=== PATIENT | female | born 1935 | race Caucasian/White ===

== ENCOUNTER 2017-08-26 14:07 | Emergency (ER) | payer BC, MEDICARE ==
[2017-08-26] MEDS ORDERED: Diph,Pert(Acell),Tet Vac 0.5 ML SYR IM ONE (14:12)
[2017-08-26] MEDS ORDERED: CLINDAMYCIN 150 MG CAP PO ONE (14:12)
--- NOTE | 2017-08-26 14:34 | Emergency Department Record ---
History of Present Illness - General Chief Complaint: Laceration(s) Stated Complaint: LACERATION ON RIGHT WRIST Time Seen by Provider: 08/26/17 14:12 Source: Patient, Family Mode of Arrival: Ambulatory Limitations: No limitations - History of Present Illness Initial Commments: 81 female presents after falling on a wood pile. She lacerated her right wrist. She denies any loss of ROM or feeling. She is unsure of when her last tetanus shot was performed. She is right handed. She does take Xarelto but bleeding has been minimal. -: Minutes(s) Extremity Location: Right: Wrist Place: Home Context: Accidental Associated Symptoms: None Treatments Prior to Arrival: Bandage - Lauren Coma Scale Eye Response: (4) Open spontaneously Motor Response: (6) Obeys commands Verbal Response: (5) Oriented [place] Total: 15 - Related Data Previous Rx's Medication Instructions Recorded Clindamycin HCl 300 mg PO TID #30 capsule 08/26/17 Allergies Allergy/AdvReac Type Severity Reaction Status Date / Time diphenhydramine Allergy HYPERSENSIT Verified 08/26/17 14:14 [From Benadryl] IVITY morphine Allergy BEHAVIORAL Verified 08/26/17 14:14 CHANGES Review of Systems Constitutional: Denies: Chills, Fever, Malaise, Weakness Eyes: Denies: Eye discharge ENT: Denies: Congestion, Throat pain Respiratory: Denies: Cough Cardiovascular: Denies: Arrhythmia Endocrine: Denies: Fatigue Gastrointestinal: Denies: Nausea, Vomiting Musculoskeletal: Denies: Arthralgia, Back pain, Myalgia Skin: Reports: Other (laceration). Denies: Bruising, Change in color, Rash Neurological: Denies: Numbness, Tingling, Tremors, Vertigo, Weakness Psychiatric: Denies: Anxiety Hematological/Lymphatic: Denies: Blood Clots, Easy bleeding, Easy bruising, Swollen glands Past Medical History - SOCIAL HISTORY Smoking Status: Former smoker - RESPIRATORY Hx Respiratory Disorders: No - CARDIOVASCULAR Hx Cardio Disorders: Yes Hx Hypertension: Yes Hx Irregular Heartbeat: Yes (Afib) - NEURO Hx Neuro Disorders: Yes Hx Headaches: Yes - GI Hx GI Disorders: Yes Hx Diverticulitis: Yes Hx of Polyps: Yes - Hx Genitourinary Disorders: Yes Hx Bladder Problem: Yes Hx Kidney Stones: Yes - ENDOCRINE Hx Endocrine Disorders: No - MUSCULOSKELETAL Hx Musculoskeletal Disorders: No - PSYCH Hx Psych Problems: No - HEMATOLOGY/ONCOLOGY Hx Hematology/Oncology Disorders: No Family Medical History Hx Heart Disease: Brother/Sister Physical Exam - General General Appearance: Alert, Oriented x3, Cooperative, No acute distress - Head Head exam: Atraumatic, Normocephalic, Normal inspection - Eye Eye exam: Normal appearance. negative: Conjunctival injection, Periorbital swelling - ENT ENT exam: Normal exam Ear exam: Normal external inspection Nasal Exam: Normal inspection Mouth exam: Normal external inspection - Neck Neck exam: Normal inspection - Cardiovascular Cardiovascular Exam: Regular rate, Normal rhythm, Normal heart sounds Peripheral Pulses: 2+: Radial (R) - Rectal Rectal exam: Deferred - exam: Deferred - Extremities Extremities exam: Full ROM, Normal capillary refill, Pedal edema, Tenderness. negative: Normal inspection Image of Hand: 1 - 2.5cm laceration, no visible tendon injury, 2 large 3mm pieces of wound noted and removed easily, no other gross contamination in a bloodless field - Neurological Neurological exam: Alert, Motor sensory deficit, Oriented X3 - Psychiatric Psychiatric exam: Normal affect, Normal mood - Skin Skin exam: negative: Intact (wrist laceration) Course - Reevaluation(s) Reevaluation #1: Betadine prep 500 Ml NS irrigation Inspection multiple times No residual FB XR ordered. 08/26/17 14:35 The XR was read as negative PROCEDURE 2.5 cm wrist laceration The wound was re-prepped with Betadine The wound again irrigated with 500ml NS The wound again explored in a bloodless field No residual FB Prolene 4-0 suture used with good wound approximation #7 We discussed at length signs of infection and return immediately if any redness , drainage, pus or any early signs of concern 08/26/17 15:27 Disposition Disposition: Discharge Clinical Impression: Wrist laceration Qualifiers: Encounter type: initial encounter Laterality: right Qualified Code(s): S61.511A - Laceration without foreign body of right wrist, initial encounter Disposition: Home, Self-Care Condition: (1) Good Instructions: Laceration (ED) Additional Instructions: Immediately return if red, warm, pus or any new concerns Take the antibiotics as directed Return in 12 days for suture removal Prescriptions: Clindamycin HCl 300 mg PO TID #30 capsule Forms: Patient Portal Access Time of Disposition: 15:28 Quality - Quality Measures Quality Measures: N/A - Blood Pressure Screening Does Patient Have Any of the Following: No Blood Pressure Classification: Pre-Hypertensive BP Reading Systolic Measurement: 148 Diastolic Measurement: 88 Screening for High Blood Pressure: < Pre-Hypertensive BP, F/U Documented > [ G8950] Pre-Hypertensive Follow-up Interventions: Referral to alternative/primary care provider.
--- NOTE | 2017-08-28 08:10 | RADIOLOGY REPORT ---
EXAM: RIGHT WRIST HISTORY: INJURY. TECHNIQUE: Four views of the right wrist were performed. FINDINGS: No evidence of fracture or dislocation. No lytic or blastic lesion. IMPRESSION: NEGATIVE RIGHT WRIST EXAMINATION. JOB NUMBER: [id number] MTDD
== END 2017-08-26 15:38 | disposition home or self-care (01) ==
LOC: ER 14:07
DX: S61.521A Laceration with foreign body of right wrist, initial encounter (principal); W18.39XA Other fall on same level, initial encounter; Y92.007 Garden or yard of unspecified non-institutional (private) residence as the place of occurrence of the external cause
CPT/HCPCS: 12031; 90715; 96372; 99283; 99284

== ENCOUNTER 2017-09-04 15:16 | Emergency (ER) | payer MEDICARE ==
--- NOTE | 2017-09-04 16:15 | Emergency Department Record ---
History of Present Illness - General Chief complaint: Lower Extremity Pain Stated complaint: RT LEG PAIN BEHIND KNEE, Time Seen by Provider: 09/04/17 16:07 Source: Patient Mode of Arrival: Wheelchair Limitations: No limitations - History of Present Illness Initial comments: The patient is here due to her lower legs hurting. She states she fell a week ago and was banged up pretty good and was seen in the ER. Since her L leg has been painful. Now today she twisted and the back of her R knee started hurting. She denies any new fall or injury. She also denies any numbness, tingling or weakness. The patient does have Afib and is on Xarelto. MD Complaint: Extremity pain Onset/Timin -: Week(s) Location: Right, Lower Leg History of Same: No Radiation: Distal Severity scale (1-10): 7 Quality: Aching Consistency: Constant Improves with: Elevation, Immobilization Worsens with: Walking, Weight bearing Associated Symptoms: Denies other symptoms - Related Data Home Medications Medication Instructions Recorded Confirmed Last Taken Amlodipine Besylate [Norvasc] 5 mg PO DAILY 09/04/17 09/04/17 09/04/17 Metoprolol Tartrate [Metoprolol 25 mg PO DAILY 09/04/17 09/04/17 09/04/17 Tartrate] Previous Rx's Medication Instructions Recorded Clindamycin HCl 300 mg PO TID #30 capsule 08/26/17 Allergies Allergy/AdvReac Type Severity Reaction Status Date / Time diphenhydramine Allergy HYPERSENSIT Verified 09/04/17 15:41 [From Benadryl] IVITY morphine Allergy BEHAVIORAL Verified 09/04/17 15:41 CHANGES Travel Screening - Travel/Exposure Within Last 30 Days Have you traveled within the last 30 days?: No Review of Systems Constitutional: Denies: Chills, Fever Eyes: Denies: Eye discharge ENT: Denies: Congestion Respiratory: Denies: Cough, Dyspnea Past Medical History - SOCIAL HISTORY Smoking Status: Former smoker Alcohol Use: None Drug Use: None - RESPIRATORY Hx Respiratory Disorders: No - CARDIOVASCULAR Hx Cardio Disorders: Yes Hx Hypertension: Yes Hx Irregular Heartbeat: Yes (Afib) - NEURO Hx Neuro Disorders: Yes Hx Headaches: Yes - GI Hx GI Disorders: Yes Hx Diverticulitis: Yes Hx of Polyps: Yes - Hx Genitourinary Disorders: Yes Hx Bladder Problem: Yes Hx Kidney Stones: Yes - ENDOCRINE Hx Endocrine Disorders: No - MUSCULOSKELETAL Hx Musculoskeletal Disorders: No - PSYCH Hx Psych Problems: No - HEMATOLOGY/ONCOLOGY Hx Hematology/Oncology Disorders: No Family Medical History Any Significant Family History?: Yes Hx Heart Disease: Brother/Sister Physical Exam - General General Appearance: Alert, Oriented x3, Cooperative, No acute distress - Head Head exam: Atraumatic, Normocephalic, Normal inspection - Eye Eye exam: Normal appearance, PERRL - Neck Neck exam: Normal inspection, Full ROM. negative: Tenderness - Respiratory Respiratory exam: Normal lung sounds bilaterally. negative: Respiratory distress - Cardiovascular Cardiovascular Exam: Irregular rhythm, Systolic murmur (2/6 (chronic per patient )). negative: Regular rate, Normal rhythm - GI/Abdominal GI/Abdominal exam: Soft, Normal bowel sounds. negative: Tenderness - Extremities Extremities exam: Normal capillary refill, Pedal edema (Trace L > R. ), Tenderness (There is posterior R knee tenderness and L lateral lower leg tenderness.), Other (Lower leg DP pulses 2+ and equal bilaterally.). negative: Normal inspection (There is slight bruising to the anterior R knee.), Calf tenderness, Full ROM, Joint swelling - Neurological Neurological exam: Alert. negative: Motor sensory deficit Course Vital Signs 09/04/17 15:37 Temperature 97.9 F Pulse Rate 62 Respiratory 20 Rate Blood Pressure 138/82 Pulse Ox 97 - Reevaluation(s) Reevaluation #1: The patient is doing OK at this time. She is still having pain to the R leg and knee. I did explain the xray and lab results. Her uric acid is elevated but with her kidney function it is not clear if she is having a gout problem. She is to take Tylenol for pain and use her walker at home. She is to see her PCP this week to go over her lab results and to have her renal insufficiency evaluated further. 09/04/17 17:56 Medical Decision Making - Data Complexity MDM Data: Labs Ordered and/or Reviewed, X-Ray Ordered and/or Reviewed - Lab Data Result diagrams: 09/04/17 16:25 09/04/17 16:25 - Radiology Data Radiology results: Report reviewed (L lower leg: Neg for any bony abnormality. R Knee: Deg joint dz, neg effusion, fx, or dislocation.) Disposition Disposition: Discharge Clinical Impression: Contusion of leg, multiple sites Qualifiers: Encounter type: initial encounter Laterality: unspecified laterality Qualified Code(s): S80.10XA - Contusion of unspecified lower leg, initial encounter Disposition: Home, Self-Care Condition: (1) Good Instructions: Contusion in Adults (ED) Additional Instructions: Please take Tylenol for pain. Please see your PCP for recheck later this week. Use your walker when needed. Return to the ER for any problems or increased pain. Forms: Patient Portal Access Time of Disposition: 17:59 Quality - Quality Measures Quality Measures: N/A - Blood Pressure Screening View Details: Yes Does Patient Have Any of the Following: No Blood Pressure Classification: Pre-Hypertensive BP Reading Systolic Measurement: 124 Diastolic Measurement: 79 Screening for High Blood Pressure: < Pre-Hypertensive BP, F/U Documented > [ G8950] Pre-Hypertensive Follow-up Interventions: Referral to alternative/primary care provider.
[2017-09-04] MEDS: ACETAMINOPHEN 325 MG TAB PO ONE (16:20)
[2017-09-04 16:32] LABS: BASO % 1.1 % (0-6); EOS % 3.3 % (0-6); GRAN % 63.8 % (47-80); HEMATOCRIT 38.8 % (35.0-47.0); HEMOGLOBIN 12.8 gm/dl (11.6-16.0); LYMPH % 20.8 % (16-45); MEAN CELL VOLUME 90.9 fl (81-97); MEAN PLATELET VOLUME 10.2 fl (7.4-10.4); PLATELET COUNT 233 K/uL (130-400); RED BLOOD COUNT 4.27 M/uL (3.80-5.40); RED CELL DISTRIBUTION WIDTH 12.9 % (11.5-14.5); WHITE BLOOD COUNT W/O DIFF 5.4 K/uL (4.2-12.2)
[2017-09-04 16:52] LABS: INR 1.04; PARTIAL THROMBOPLASTIN TIME 28.2 SECONDS (24.5-39.1); PROTHROMBIN TIME (PATIENT) 11.2 SECONDS (9.5-12.1)
--- NOTE | 2017-09-06 14:59 | RADIOLOGY REPORT ---
EXAM: RIGHT KNEE, THREE VIEWS HISTORY: RIGHT KNEE PAIN FOR THREE DAYS. TWISTING INJURY ONE WEEK AGO. TECHNIQUE: Three views of the right knee were obtained. Comparison: None. Encounter: Initial. FINDINGS: There is borderline to mild osteopenia. No acute fracture, dislocation, or destructive bone lesion is seen. Mild tricompartmental degenerative changes are present. No gross joint effusion is demonstrated. There is atherosclerotic calcification scattered within the distal femur and proximal lower leg. IMPRESSION: NO ACUTE FRACTURE NOR DISLOCATION. MILD TRICOMPARTMENTAL DEGENERATIVE CHANGES. JOB NUMBER: [id number] [facility]
--- NOTE | 2017-09-06 15:02 | RADIOLOGY REPORT ---
EXAM: LEFT LOWER LEG HISTORY: PAIN. FALL ONE WEEK AGO. TECHNIQUE: AP and lateral views of the left lower leg were obtained. Comparison: None. Encounter: Initial. FINDINGS: There is borderline to mild osteopenia. No acute fracture, dislocation, or destructive bone lesion is seen. There are mild tricompartmental degenerative changes of the left knee and there are mild degenerative changes of the ankle mortise joint. Small chronic appearing ossific densities are noted adjacent to the tip of the medial malleolus. There is diffuse soft tissue swelling most pronounced distally. IMPRESSION: 1. NO ACUTE FRACTURE NOR DISLOCATION. 2. DIFFUSE SOFT TISSUE SWELLING MOST PRONOUNCED DISTALLY. 3. DEGENERATIVE CHANGES. JOB NUMBER: [id number] MTDD
== END 2017-09-04 18:08 | disposition home or self-care (01) ==
LOC: ER 15:16
DX: S80.10XA Contusion of unspecified lower leg, initial encounter (principal); W19.XXXA Unspecified fall, initial encounter; I48.91 Unspecified atrial fibrillation; Z79.01 Long term (current) use of anticoagulants; I10 Essential (primary) hypertension; Z87.891 Personal history of nicotine dependence
CPT/HCPCS: 80048; 84550; 85025; 85610; 85730; 99283; 99284

== ENCOUNTER 2019-03-15 11:35 | Emergency (ER) | payer MEDICARE ==
--- NOTE | 2019-03-15 11:57 | Emergency Department Record ---
History of Present Illness - General Chief Complaint: Fall Injury Stated Complaint: FALL X1WK AGO Time Seen by Provider: 03/15/19 11:47 Source: Patient, RN notes reviewed Mode of Arrival: Ambulatory - History of Present Illness Initial Comments: fall 6 days ago and has bilateral chest pain and bilateral breast pain and she has an abrasion on the right wrist and right knee pain but walking well. No LOC and she landed on her nose with a headache since the fall and she is on xarelto for atrial fib. Last dose of tylenol at 4 am PMH left rib fractures one year ago Onset/Timin -: Days(s) Fall From: Standing When Fall Occurred: # Days LINE [employer] Place Fall Occurred: Home Loss of Consciousness: None Prolonged Down Time?: Yes, Minute(s) Symptoms Prior to Fall: None Severity: Moderate Severity scale (1-10): 7 Quality: Aching - [place] Coma Scale Eye Response: (4) Open spontaneously Motor Response: (6) Obeys commands Verbal Response: (5) Oriented [place] Total: 15 - Related Data Allergies Allergy/AdvReac Type Severity Reaction Status Date / Time diphenhydramine Allergy HYPERSENSIT Verified 03/15/19 11:45 [From Benadryl] IVITY morphine Allergy BEHAVIORAL Verified 03/15/19 11:45 CHANGES Travel Screening - Travel/Exposure Within Last 30 Days Have you traveled within the last 30 days?: No - Travel/Exposure Within Last Year Have you traveled outside the [place] in the last year?: No - Additonal Travel Details Have you been exposed to anyone with a communicable illness?: No - Travel Symptoms Symptom Screening: None Review of Systems Reviewed: No additional complaints except as noted below Constitutional: Reports: As per HPI. Denies: Chills, Fever, Malaise, Night sweats, Weakness, Weight change Eyes: Reports: As per HPI. Denies: Eye discharge, Eye pain, Photophobia, Vision change ENT: Reports: As per HPI. Denies: Congestion, Dental pain, Ear pain, Epistaxis , Hearing loss, Throat pain Respiratory: Reports: As per HPI. Denies: Cough, Dyspnea, Hemoptysis, Stridor, Wheezes Cardiovascular: Reports: As per HPI, Other (left chest wall pain and bruise). Denies: Arrhythmia, Chest pain, Dyspnea on exertion, Edema, Murmurs, Orthopnea, Palpitations, Paroxysmal nocturnal dyspnea, Rheumatic Fever, Syncope Endocrine: Reports: As per HPI. Denies: Fatigue, Heat or cold intolerance, Polydipsia, Polyuria Gastrointestinal: Reports: As per HPI. Denies: Abdominal pain, Constipation, Diarrhea, Hematemesis, Hematochezia, Melena, Nausea, Vomiting Genitourinary: Reports: As per HPI. Denies: Abnormal menses, Discharge, Dyspareunia, Dysuria, Frequency, Hematuria, Incontinence, Retention, Urgency Musculoskeletal: Reports: As per HPI. Denies: Arthralgia, Back pain, Gout, Joint swelling, Myalgia, Neck pain Skin: Reports: As per HPI. Denies: Bruising, Change in color, Change in hair/ nails, Lesions, Pruritus, Rash Neurological: Reports: As per HPI, Headache. Denies: Abnormal gait, Confusion, Numbness, Paresthesias, Seizure, Tingling, Tremors, Vertigo, Weakness Psychiatric: Reports: As per HPI. Denies: Anxiety, Auditory hallucinations, Depression, Homicidal thoughts, Suicidal thoughts, Visual hallucinations Hematological/Lymphatic: Reports: As per HPI. Denies: Anemia, Blood Clots, Easy bleeding, Easy bruising, Swollen glands Past Medical History - SOCIAL HISTORY Smoking Status: Former smoker Alcohol Use: None Drug Use: None - RESPIRATORY Hx Respiratory Disorders: No - CARDIOVASCULAR Hx Cardio Disorders: Yes Hx Hypertension: Yes Hx Irregular Heartbeat: Yes (Afib) - NEURO Hx Neuro Disorders: Yes Hx Headaches: Yes - GI Hx GI Disorders: Yes Hx Diverticulitis: Yes Hx of Polyps: Yes - Hx Genitourinary Disorders: Yes Hx Bladder Problem: Yes Hx Kidney Stones: Yes - ENDOCRINE Hx Endocrine Disorders: No - MUSCULOSKELETAL Hx Musculoskeletal Disorders: No Comment:: left rib fractures in past year. - PSYCH Hx Psych Problems: No - HEMATOLOGY/ONCOLOGY Hx Hematology/Oncology Disorders: No Family Medical History Any Significant Family History?: Yes Hx Heart Disease: Brother/Sister Physical Exam - General General Appearance: Alert, Oriented x3, Cooperative, No acute distress - Head Head exam: Normal inspection - Eye Eye exam: Normal appearance, PERRL Pupils: Normal accommodation - ENT ENT exam: Normal exam, Mucous membranes moist, Normal external ear exam, Normal orophraynx, TM's normal bilaterally Ear exam: Normal external inspection. negative: External canal tenderness Nasal Exam: Normal inspection. negative: Discharge, Sinus tenderness Mouth exam: Normal external inspection, Tongue normal Teeth exam: Normal inspection. negative: Dental caries Throat exam: Normal inspection. negative: Tonsillar erythema, Tonsillar exudate - Neck Neck exam: Normal inspection, Full ROM. negative: Tenderness - Respiratory Respiratory exam: Normal lung sounds bilaterally, Chest wall tenderness (left side over the 4th rib over breast). negative: Respiratory distress - Cardiovascular Cardiovascular Exam: Regular rate, Normal rhythm, Normal heart sounds, Other ( chest wall bruise over the left breast andterior 4th rib area) - GI/Abdominal GI/Abdominal exam: Soft, Normal bowel sounds. negative: Tenderness - Rectal Rectal exam: Deferred - exam: Deferred - Extremities Extremities exam: Normal inspection, Full ROM, Normal capillary refill. negative: Tenderness - Back Back exam: Reports: Normal inspection, Full ROM. Denies: Muscle spasm, Rash noted, Tenderness - Neurological Neurological exam: Alert, Normal gait, Oriented X3, Reflexes normal - Psychiatric Psychiatric exam: Normal affect, Normal mood - Skin Skin exam: Dry, Intact, Normal color, Warm Course Vital Signs 03/15/19 11:37 Temperature 97.8 F Pulse Rate 64 Respiratory 20 Rate Blood Pressure 207/104 Pulse Ox 98 - Reevaluation(s) Reevaluation #1: no pain springing ribs and no neck pain on palpation ,No abdominal pain on palpation. no pain on palpation of legs or moving legs 03/15/19 12:08 Medical Decision Making - Data Complexity MDM Data: Labs Ordered and/or Reviewed, X-Ray Ordered and/or Reviewed (ribs no acute rib fractures , old rib fractures healed ,CT head no acute changes and atrophy, cervical spine negative for fractures and some chronic changes and thyroid nodule left lobe of thyroid 14 mm ) - Lab Data Result diagrams: 03/15/19 12:10 03/15/19 12:10 Disposition Clinical Impression: Chest wall pain Headache Qualifiers: Headache type: unspecified Headache chronicity pattern: acute headache Intractability: not intractable Qualified Code(s): R51 - Headache Fall Qualifiers: Encounter type: initial encounter Qualified Code(s): W19.XXXA - Unspecified fall, initial encounter Contusion, chest wall Qualifiers: Encounter type: initial encounter Laterality: left Qualified Code(s): S20.212A - Contusion of left front wall of thorax, initial encounter Abrasion of right wrist Qualifiers: Encounter type: initial encounter Qualified Code(s): S60.811A - Abrasion of right wrist, initial encounter Disposition: Home, Self-Care Condition: (1) Good Instructions: Fall Prevention for Older Adults (ED), Contusion in Adults (ED) Additional Instructions: follow up with family Dr in 5 days tylenol for pain clean wrist woun daily with triple antibiotic ointment Forms: Patient Portal Access Time of Disposition: 14:01 Quality - Quality Measures Quality Measures: N/A - Blood Pressure Screening Does Patient Have Any of the Following: No, Active Dx of HTN Blood Pressure Classification: Hypertensive Reading Systolic Measurement: 207 Diastolic Measurement: 104 Screening for High Blood Pressure: Patient Exclusion, Hx of HTN [G9744]
[2019-03-15] MEDS ORDERED: ACETAMINOPHEN 325 MG TAB PO ONE (12:06)
[2019-03-15 12:17] LABS: BASO % 0.9 % (0-6); EOS % 2.9 % (0-6); GRAN % 59.9 % (47-80); HEMATOCRIT 40.8 % (35.0-47.0); HEMOGLOBIN 13.1 gm/dl (11.6-16.0); LYMPH % 28.2 % (16-45); MEAN CELL VOLUME 89.1 fl (81-97); MEAN CORPUSCULAR HEMOGLOBIN 28.6 pg (27-33); MEAN CORPUSCULAR HGB CONC 32.1 g/dl (32-36); MEAN PLATELET VOLUME 9.7 fl (7.4-10.4); MONO % 8.1 % (0-9); PLATELET COUNT 252 K/uL (130-400); RED BLOOD COUNT 4.58 M/uL (3.80-5.40); RED CELL DISTRIBUTION WIDTH 13.9 % (11.5-14.5); WHITE BLOOD COUNT W/O DIFF 5.5 K/uL (4.2-12.2)
--- NOTE | 2019-03-18 22:20 | CT SCAN REPORT ---
EXAM: CT SCAN HEAD WO CONTRAST HISTORY: FALL. INJURY TO NOSE. TECHNIQUE: Routine noncontrast CT of the brain. COMPARISON: CT brain without contrast dated 01/14/2015. FINDINGS: The subarachnoid spaces remain dilated consistent with generalized atrophy. The ventricles are not enlarged. Mild to moderate periventricular and subcortical white matter lucencies are again noted scattered in each cerebral hemisphere, the pattern of which is not significantly changed. These are nonspecific but likely areas of chronic microvascular ischemia. 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 No convincing new area of abnormally increased or decreased attenuation is noted throughout the brain substance. No abnormal extraaxial fluid collection nor skull fracture is seen. The visualized paranasal sinuses and mastoid air cells are clear. Post cataract surgery changes are noted bilaterally. IMPRESSION: 1. NO CT EVIDENCE OF ACUTE MAJOR VESSEL INFARCT, INTRACRANIAL HEMORRHAGE, MASS , NOR SKULL FRACTURE. 2. GENERALIZED ATROPHY RE-DEMONSTRATED. 3. MODERATE WHITE-MATTER LUCENCIES SCATTERED IN EACH CEREBRAL HEMISPHERE IS NONSPECIFIC BUT LIKELY AREAS OF CHRONIC SMALL VESSEL ISCHEMIA. JOB NUMBER: [id number] [facility]
--- NOTE | 2019-03-18 22:30 | CT SCAN REPORT ---
EXAM: CT SCAN CERVICAL SPINE WO CONTRAST HISTORY: FALL WITH TRAUMA TO NOSE. TECHNIQUE: Thin-collimation helical CT examination of the cervical spine is performed in the axial plane without intravenous contrast. Coronal and sagittal reformatted images are generated and reviewed. COMPARISON: No prior imaging of the cervical spine available for comparison. Same-day noncontrast CT of the brain. FINDINGS: There is mild diffuse osteopenia. The vertebral bodies are normal in alignment and height. No acute fracture, suspicious destructive bone lesion, or prevertebral soft tissue swelling. Mild multilevel degenerative disc/ degenerative endplate changes are scattered throughout the cervical spine without associated osseous central canal stenosis. Mild multilevel bilateral facet arthropathy is present, most pronounced at the C7-T1 level on the right, where the changes are mild to moderate. No gross neural foraminal narrowing is identified. There is enlargement of the left foramen transversarium at the C4 level. This likely relates to a tortuous, mildly ectatic vertebral artery. If clinically warranted, this could be further evaluated with contrast-enhanced CT of the neck. There is a hypodense nodule within the mid to lower left thyroid lobe measuring 14 x 9 mm. This is of indeterminate etiology. Further evaluation with thyroid ultrasound would be of benefit. Otherwise, there is no evidence of cervical mass nor adenopathy. Benign calcification is demonstrated within the faucial tonsils. Mild biapical lung scarring is present. IMPRESSION: 1. NO ACUTE FRACTURE, SUBLUXATION, OR PREVERTEBRAL SOFT TISSUE SWELLING. 2. MILD MULTILEVEL DEGENERATIVE CHANGES. 3. EXPANSION OF THE LEFT FORAMEN TRANSVERSARIUM AT THE C4 LEVEL. THIS LIKELY RELATES TO A TORTUOUS, POSSIBLE ECTATIC LEFT VERTEBRAL ARTERY. IF CLINICALLY WARRANTED, THIS COULD BE FURTHER EVALUATED WITH CONTRAST CT EXAMINATION OF THE NECK ON AN OUTPATIENT BASIS. 4. HYPODENSE NODULE IN THE LEFT THYROID LOBE, DISCUSSED ABOVE. [facility]BER: [id number] [facility]
--- NOTE | 2019-03-18 22:35 | RADIOLOGY REPORT ---
EXAM: RIBS, BILATERAL W/PA CHEST HISTORY: PAIN ONE WEEK POST FALL POSTERIORLY ON THE LEFT. TECHNIQUE: AP and oblique views of the right and left ribs are obtained as well as an upright PA view of the chest. COMPARISON: Two-view radiographic examination dated 01/14/2015. FINDINGS: There is mild diffuse osteopenia. Old healed fracture deformities of the posterolateral left seventh and eighth ribs are re-demonstrated. There is a possible old healed fracture deformity of the posterolateral left ninth rib as well, unchanged. No definite acute rib fracture. No lytic or blastic bone lesion. There are mild degenerative changes scattered throughout the thoracic and lumbar portions of the spine. The heart projects mildly enlarged without pulmonary venous hypertension. The lungs and pleural spaces are clear. IMPRESSION: 1. DIFFUSE OSTEOPENIA MILDLY LIMITS EVALUATION. NO DEFINITE ACUTE RIB FRACTURE NOTED. 2. OLD HEALED FRACTURE DEFORMITIES OF THE POSTEROLATERAL LEFT SEVENTH, EIGHTH, AND NINTH RIBS RE-DEMONSTRATED. 3. 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 CLEAR LUNGS. TORTUOUS ATHEROSCLEROTIC THORACIC AORTA. JOB NUMBER: [id number] [facility]
== END 2019-03-15 14:14 | disposition home or self-care (01) ==
LOC: ER 11:35
DX: S20.212A Contusion of left front wall of thorax, initial encounter (principal); S60.811A Abrasion of right wrist, initial encounter; M25.561 Pain in right knee; R51 Headache; E04.1 Nontoxic single thyroid nodule; I10 Essential (primary) hypertension; I48.91 Unspecified atrial fibrillation; W19.XXXA Unspecified fall, initial encounter; Y92.007 Garden or yard of unspecified non-institutional (private) residence as the place of occurrence of the external cause; Z79.01 Long term (current) use of anticoagulants; Z87.891 Personal history of nicotine dependence
CPT/HCPCS: 70450; 71111; 72125; 80048; 85025; 85730; 99283; 99284